=== PATIENT | female | born 1980 | race Caucasian/White ===

== ENCOUNTER → 2018-09-30 | Outpatient (CLI) | payer BC | END | disposition home or self-care (01) | LOC: U/S 07:57 | DX: R10.2 Pelvic and perineal pain (principal) | CPT/HCPCS: 76830; 76856 ==

== ENCOUNTER → 2018-11-19 | Outpatient (CLI) | payer BC ==
[2018-11-19 08:13] LABS: ADD MAN DIFF? NO
[2018-11-19 08:17] LABS: ADD UMIC YES; UR ASCORBIC ACID NEGATIVE (NEGATIVE); UR BILIRUBIN (Dip) NEGATIVE (NEGATIVE); UR BLOOD (Dip) 1+ mg/dL (NEGATIVE); UR CLARITY SLIGHTLY CLOUDY (CLEAR); UR COLOR YELLOW (YELLOW); UR GLUCOSE (Dip) NEGATIVE (NEGATIVE); UR KETONES (Dip) NEGATIVE (NEGATIVE); UR LEUKOCYTE ESTERASE (Dip) NEGATIVE Leu/ul (NEGATIVE); UR MUCUS MODERATE /HPF (NONE SEEN); UR NITRITE (Dip) NEGATIVE (NEGATIVE); UR RBC 2 /HPF (0-5); UR SQUAMOUS EPITHELIAL CELL FEW /HPF (FEW); UR TOTAL PROTEIN (Dip) NEGATIVE (NEGATIVE); UR UROBILINOGEN (Dip) NEGATIVE (NEGATIVE); UR WBC 0 /HPF (0-5)
[2018-11-19 08:20] LABS: WHITE BLOOD COUNT 6.1 10^3/ul (4.8-10.8)
[2018-11-19 08:20] LABS: BASOPHIL # 0.1 10^3/ul (0.0-0.1); EOSINOPHILS # 0.2 10^3/ul (0.0-0.5); EOSINOPHILS % 3.8 % (0.0-7.0); HEMATOCRIT 39.1 % (37.0-47.0); LYMPHOCYTES # 2.4 10^3/ul (0.8-2.9); LYMPHOCYTES % 39.4 % (15.0-51.0); MEAN CORPUSCULAR HEMOGLOBIN 31.3 pg (29.0-33.0); MEAN CORPUSCULAR HGB CONC 33.2 g/dl (32.0-37.0); MEAN PLATELET VOLUME 9.9 fl (7.4-10.4); MONOCYTE # 0.4 10^3/ul (0.3-0.9); MONOCYTES % 6.4 % (0.0-11.0); NEUTROPHILS % 49.1 % (39.0-77.0); PLATELET COUNT 325 10^3/UL (140-415); RED BLOOD COUNT 4.16 10^6/ul (4.20-5.40); RED CELL DISTRIBUTION WIDTH 12.3 % (11.5-14.5)
[2018-11-19 08:37] LABS: INR 0.97
[2018-11-19 08:38] LABS: PARTIAL THROMBOPLASTIN TIME 29.1 Sec (23.0-35.0)
[2018-11-19 08:49] LABS: ALANINE AMINOTRANSFERASE 17 IU/L (13-69); ALBUMIN 4.2 g/dl (3.3-4.9); ALBUMIN/GLOBULIN RATIO 1.35; ALKALINE PHOSPHATASE 51 IU/L (42-121); ANION GAP 7 (5-13); ASPARTATE AMINO TRANSFERASE 19 IU/L (15-46); BILIRUBIN,INDIRECT 0.6 mg/dl (0-1.1); BILIRUBIN,TOTAL 0.6 mg/dl (0.2-1.3); BLOOD UREA NITROGEN 9 mg/dl (7-20); CALCIUM 9.3 mg/dl (8.4-10.2); CARBON DIOXIDE 28 mmol/L (21-31); CHLORIDE 106 mmol/L (97-110); CHOLESTEROL 175 mg/dl (100-200); CREATININE 0.66 mg/dl (0.44-1.00); Estimated GFR > 60 mL/min (>60); GLUCOSE 100 mg/dl (70-220); HDL CHOLESTEROL 43 mg/dl (34-82); LDL CHOLESTEROL,CALCULATED 102 mg/dl; POTASSIUM 4.7 mmol/L (3.5-5.1); SODIUM 141 mmol/L (135-144); TOTAL PROTEIN 7.3 g/dl (6.1-8.1); TRIGLYCERIDES 150 mg/dl (0-149)
== END | disposition home or self-care (01) ==
LOC: LAB 07:01
DX: Z01.818 Encounter for other preprocedural examination (principal)
CPT/HCPCS: 71046; 80053; 80061; 81001; 84703; 85025; 85610; 85730; 86900; 86901; 87086

== ENCOUNTER 2018-11-21 10:30 | Day surgery (SDC) | payer BC ==
[2018-12-02] MEDS: LACTATED RINGER'S 1,000 ML IV (09:40)
[2018-12-02] MEDS ORDERED: CEFAZOLIN 2 GM/50 ML (PMX) 50 ML IVPB (10:00)
[2018-12-02] MEDS ORDERED: HYDROmorphONE 1 MG/5 ML IV SYRINGE IV (11:00)
[2018-12-02] MEDS ORDERED: ROCURONIUM 50 MG INJ (11:00)
[2018-12-02] MEDS ORDERED: EPHEDrine 25 MG/5 ML SYG IV (11:00)
[2018-12-02] MEDS ORDERED: OXYCODONE/ACETAMINOPHEN (5/325) TAB PO (11:00)
[2018-12-02] MEDS ORDERED: hydrALAzine 20 MG INJ IV (11:00)
[2018-12-02] MEDS ORDERED: LABETALOL HCL 20MG INJ IV (11:00)
[2018-12-02] MEDS ORDERED: PROPOFOL 20 ML (11:00)
[2018-12-02] MEDS ORDERED: METOCLOPRAMIDE 10 MG INJ IV (11:00)
[2018-12-02] MEDS ORDERED: MIDAZOLAM 1 MG/ML 2 ML INJ (11:01)
[2018-12-02] MEDS ORDERED: FENTAnyl 50 MCG/ML VIAL (11:01)
[2018-12-02] MEDS ORDERED: LIDOCAINE 1% (MDV) 20 ML INJ (11:01)
[2018-12-02] MEDS ORDERED: DEXAMETHASONE 4 MG/ML 5 ML INJ (11:47)
[2018-12-02] MEDS ORDERED: OXYTOCIN 10 UNIT INJ (11:48)
[2018-12-02] MEDS ORDERED: SUGAMMADEX SODIUM 200 MG/2 ML VIAL IV (11:48)
[2018-12-02] MEDS: BUPIVACAINE 0.5%/EPI (SDV) 10 ML INJ (12:36)
[2018-12-02] MEDS: KETOROLAC 30 MG INJ IV (13:03)
[2018-12-02] MEDS: MEPERIDINE 25 MG INJ IV (13:03)
[2018-12-02] MEDS: ONDANSETRON 4 MG INJ IV (13:03)
[2018-12-02] MEDS: FENTAnyl 50 MCG/ML VIAL IV ×4 (13:09→13:27)
[2018-12-02] MEDS: MIDAZOLAM 1 MG/ML 2 ML INJ IV (13:09)
== END 2018-12-02 14:50 | disposition home or self-care (01) ==
LOC: SDS 12-02 08:30
DX: Z30.2 Encounter for sterilization (principal); D25.9 Leiomyoma of uterus, unspecified
CPT/HCPCS: 58661; 84703; 88302